=== PATIENT | female | born 1965 | race African-American/Black ===

== ENCOUNTER 2020-03-11 16:19 | Emergency (ER) | payer SELFPAY ==
[~2020-03-11] VITALS: Ht 165.1 cm; Wt 68.0 kg
[~2020-03-11 16:19] MED LIST: BACTRIM; IBUPROFEN
[2020-03-11 19:05] VITALS: BP 110/68
== END 2020-03-11 19:06 | disposition home or self-care (01) ==
LOC: ER 16:40
DX: Z03.818 Encounter for observation for suspected exposure to other biological agents ruled out (principal); F17.200 Nicotine dependence, unspecified, uncomplicated; Z71.6 Tobacco abuse counseling
CPT/HCPCS: 71045; 99283; 99406

== ENCOUNTER 2023-09-20 15:59 | Emergency (ER) | payer MEDICAID, OTHER ==
[~2023-09-20] VITALS: Ht 165.1 cm; Wt 64.0 kg
[2023-09-20 16:16] VITALS: BP 147/90; TEMP 98.7; O2SAT 100
[2023-09-20] MEDS ORDERED: VALA100044 MT (16:32)
[2023-09-20 17:01] VITALS: PULSE 82; RESP 16
== END 2023-09-20 18:07 | disposition home or self-care (01) ==
LOC: ER 15:59
DX: B02.9 Zoster without complications (principal)
CPT/HCPCS: 99283

== ENCOUNTER 2025-07-06 07:39 | Emergency (ER) | payer MEDICAID ==
[~2025-07-06] VITALS: Ht 162.6 cm; Wt 78.0 kg
[~2025-07-06 07:39] MED LIST changes: +CEPH500C2 MT; +VALA100044 MT
[2025-07-06 07:42] VITALS: O2SAT 99
[2025-07-06] MEDS ORDERED: AMOX1TAB16 MT (08:52)
[2025-07-06] MEDS ORDERED: MUPI22OI2 TP (08:53)
[2025-07-06] MEDS: TETANUS, DIPHTHERIA, PERTUSSIS VAC/PF 0.5ML (>10YR OLD) IM ONE (09:50)
[2025-07-06 09:51] VITALS: BP 141/76; PULSE 85; RESP 16; TEMP 36.1; O2SAT 99
[2025-07-06] MEDS: AMOXICILLIN/POTASSIUM CLAVULANATE 875/125MG TAB PO ONE (09:51)
[2025-07-06] MEDS: BACITRACIN ZINC OINT UDPKT TOP ONE (09:51)
== END 2025-07-06 09:53 | disposition home or self-care (01) ==
LOC: ER 07:39
DX: S61.256A Open bite of right little finger without damage to nail, initial encounter (principal); F10.90 Alcohol use, unspecified, uncomplicated; F12.90 Cannabis use, unspecified, uncomplicated; Z79.624 Long term (current) use of inhibitors of nucleotide synthesis; W54.0XXA Bitten by dog, initial encounter; Y93.89 Activity, other specified; Y92.89 Other specified places as the place of occurrence of the external cause; Y99.8 Other external cause status
CPT/HCPCS: 73140; 90471; 90715; 99283